=== PATIENT | female | born 1985 | race Two or more races ===

== ENCOUNTER 2019-08-03 08:47 | Emergency (ER) | payer SELFPAY ==
[~2019-08-03] VITALS: Ht 154.9 cm; Wt 65.5 kg
[~2019-08-03 08:47] MED LIST: EPIPEN0.3 MG/0.3 IJ
[2019-08-03 09:22] VITALS: BP 111/57
--- NOTE | 2019-08-03 09:48 | PHYS DOC ---
Past Medical History Past Medical History: Asthma, Seizure Past Surgical History: Tonsillectomy Alcohol Use: None Drug Use: None Adult General Chief Complaint Chief Complaint: COUGH HPI HPI Patient is a 34 year old female who presents to the emergency department with complaints of losing her voice and throat hoarseness for the last 5 days. Patient states that yesterday she developed a cough with green sputum. Today the patient states that her throat started to hurt. Patient denies any nausea, vomiting, diarrhea, abdominal pain, wheezing, shortness of breath, ear pain, nasal congestion, chest pain, or palpitations. She currently rates her pain a 2 out of 10 on the pain scale, she denies any alleviating or exacerbating factors. Patient states she has a history of asthma, she denies any wheezing at this time. States she did feel a little wheezy at night a few days ago. All other ROS is neg unless otherwise noted in HPI. Review of Systems Review of Systems See Above Allergies Allergies Allergies Coded Allergies Type Severity Reaction Last Updated Verified phenytoin Allergy Severe Rash 07/27/17 Yes Physical Exam Physical Exam See Above Constitutional: Well developed, well nourished, no acute distress, non-toxic appearance. [] HENT: Normocephalic, atraumatic, bilateral external ears normal, bilateral TMs normal, posterior pharynx normal, no tonsils, oropharynx moist, no oral exudates, nose congested Eyes: PERRLA, EOMI, conjunctiva normal, no discharge. [] Neck: Normal range of motion, no tenderness, supple, no stridor. [] Cardiovascular:Heart rate regular rhythm, no murmur [] Lungs & Thorax: Bilateral breath sounds clear to auscultation [] Skin: Warm, dry, no erythema, no rash. [] Back: No tenderness Extremities: No cyanosis, ROM intact Neurologic: Alert and oriented X 3, no focal deficits noted. [] Psychologic: Affect normal, judgement normal, mood normal. [] Current Patient Data Vital Signs Vital Signs Date Time Temp Pulse Resp B/P (MAP) Pulse Ox O2 Delivery O2 Flow Rate FiO2 08/03/19 09:22 97.7 65 18 111/57 (75) 99 Room Air 97.7 EKG EKG [] Radiology/Procedures Radiology/Procedures [] Course & Med Decision Making Course & Med Decision Making Pertinent Labs and Imaging studies reviewed. (See chart for details) Medical screening exam complete, no abnormal findings consistent with medical emergency identified. PT eloped after speaking with registration. POC would've included URI instructions and prescription for tessalon perrles [] Dragon Disclaimer Dragon Disclaimer This electronic medical record was generated, in whole or in part, using a voice recognition dictation system. 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
== END 2019-08-03 10:09 | disposition home or self-care (01) ==
LOC: ER 08:47
DX: Z13.89 Encounter for screening for other disorder (principal); R05 Cough; J45.909 Unspecified asthma, uncomplicated; R56.9 Unspecified convulsions; Z90.89 Acquired absence of other organs
CPT/HCPCS: 99281